=== PATIENT | female | born 1970 | race Caucasian/White ===

== ENCOUNTER 2016-12-08 07:59 | Day surgery (SDC) | payer BC ==
[~2016-12-08] VITALS: Ht 165.1 cm; Wt 75.0 kg
[~2016-12-08 07:59] MED LIST: EXCEDRIN EXTRA1 EACH PO
[2016-12-08 08:14] VITALS: BP 106/53
[2016-12-08 11:35] VITALS: BP 109/46
[2016-12-08 12:35] VITALS: BP 113/53
== END 2016-12-08 12:35 | disposition home or self-care (01) ==
LOC: SDC 07:59
DX: N88.2 Stricture and stenosis of cervix uteri (principal); E04.1 Nontoxic single thyroid nodule; Z88.0 Allergy status to penicillin; Z83.3 Family history of diabetes mellitus; Z82.49 Family history of ischemic heart disease and other diseases of the circulatory system; Z80.0 Family history of malignant neoplasm of digestive organs; Z80.3 Family history of malignant neoplasm of breast; Z82.0 Family history of epilepsy and other diseases of the nervous system
CPT/HCPCS: 76857; 88305; J1885; J2250; J2405; J2765; J3010